=== PATIENT | male | born 1995 | race Caucasian/White ===

== ENCOUNTER 2017-04-16 11:54 | Emergency (ER) | payer BC ==
[2017-04-16 12:07] VITALS: BP 129/73
--- NOTE | 2017-04-16 12:22 | UC ---
Throat Pain/Nasal González HPI - HPI Summary HPI Summary: Per volunteer services assistant "c/o sore throat x 3 days. Also c/o frequent urination x 1 week. " He is here with his GF Caprice and their dtr Nancy. ST x a few days,. mild cough, no wheezing. denies dysuria, blood or penile d/c.no testicular pain or pain at rectum. no fever. did not take APAP or nsaids today. - History of Current Complaint Chief Complaint: UCRespiratory Stated Complaint: SORE THROAT,URINARY COMPLAINT Time Seen by Provider: 04/16/17 12:19 - Allergies/Home Medications Allergies/Adverse Reactions: Allergies Allergy/AdvReac Type Severity Reaction Status Date / Time No Known Allergies Allergy Unverified 04/16/17 12:07 PMH/Surg Hx/FS Hx/Imm Hx Previously Healthy: Yes - Surgical History Surgical History: None - Family History Known Family History: Positive: Hypertension - Social History Alcohol Use: None Substance Use Type: None Smoking Status (MU): Never Smoked Tobacco Review of Systems Constitutional: Negative Skin: Negative Eyes: Negative ENT: Sore Throat, Other - +PND Respiratory: Cough - mild Cardiovascular: Negative Gastrointestinal: Negative Genitourinary: Frequency Motor: Negative Neurovascular: Negative Musculoskeletal: Negative Neurological: Negative Psychological: Negative All Other Systems Reviewed And Are Negative: Yes Physical Exam Triage Information Reviewed: Yes Appearance: Well-Appearing, No Pain Distress, Well-Nourished Vital Signs: Initial Vital Signs Temp 97.8 F 04/16/17 12:00 Pulse 91 04/16/17 12:00 Resp 16 04/16/17 12:00 BP 129/73 04/16/17 12:00 Pulse Ox 99 04/16/17 12:00 Vital Signs Reviewed: Yes Eye Exam: Normal ENT: Positive: Hearing grossly normal, Pharyngeal erythema - +PND, no exudate, no abscess., TMs normal, Other: - no sinus tenderness Dental Exam: Normal Neck exam: Normal Neck: Positive: Supple, Nontender, No Lymphadenopathy. Negative: Nuchal Rigidity Respiratory Exam: Normal Respiratory: Positive: Lungs clear, Normal breath sounds, No respiratory distress, No accessory muscle use. Negative: Crackles, Rhonchi, Stridor, Wheezing Cardiovascular Exam: Normal Cardiovascular: Positive: RRR, No Murmur, Pulses Normal Abdominal Exam: Normal Abdomen Description: Positive: Nontender, Soft Musculoskeletal Exam: Normal Neurological Exam: Normal Psychological Exam: Normal Skin Exam: Normal Throat Pain/Nasal Course/Dx - Course Course Of Treatment: rapid strep is neg. UA nml. will send cx - Differential Dx/Diagnosis Differential Diagnosis/HQI/PQRI: Laryngitis, Peritonsillar Abscess, Pharyngitis , Tonsillitis, URI Provider Diagnoses: viral pharyngitis, urinary frequency Discharge - Discharge Plan Condition: Stable Disposition: HOME Patient Education Materials: Pharyngitis (ED) Referrals: No Primary Care Phys,NOPCP [Primary Care Provider] - 3 Days [facility] [Provider Group] Additional Instructions: Strep test is negative and urine sample was normal. You should follow up for this this week with a provider listed above. You should be checked for diabetes due to urinary frequency by your new PCP. Drink plenty of fluids, you can take tylenol or ibuprofen for the sore throat for the next few days.
== END 2017-04-16 12:59 | disposition home or self-care (01) ==
LOC: UCCORT 11:54
DX: J02.8 Acute pharyngitis due to other specified organisms (principal); R35.0 Frequency of micturition
CPT/HCPCS: 81003; 87086; 87651; 99212; G0463

== ENCOUNTER 2017-10-10 12:14 | Emergency (ER) | payer BC ==
[2017-10-10 14:29] VITALS: BP 136/85
--- NOTE | 2017-10-10 14:45 | UC ---
HPI Febrile Illness - HPI Summary HPI Summary: Pt presents to with reporting 2 weeks ago had body aches, cough, nausea/ vomiting. Pt states had significant head congestion. Pt states was starting to feel better and 2 days ago develop sore thoat, right ear popping and fullness. Pt denies fevers, chills. Pt has been using OTC mucinex, nasal spray with mild relief. No meds today. Pt states today feels "the best" but was concerned with sore throat so wanted to be checked. Pt's daughter 9months with + flu 6 days ago. Pt uses inhaler Qhs. No sob. no wheeze + smokes cigarettes + flu vaccine this year. Pt requesting a work note pt's medications reviewed this visit - History of Current Complaint Chief Complaint: UCGeneralIllness Time Seen by Provider: 10/10/17 14:36 Hx Obtained From: Patient Timing: Constant, Lasting Days Initial Severity: Moderate Pain Intensity: 0 Aggravating Factors: Nothing Associated Signs and Symptoms: Cough, Nausea - resolved - Allergy/Home Medications Allergies/Adverse Reactions: Allergies Allergy/AdvReac Type Severity Reaction Status Date / Time No Known Allergies Allergy Unverified 10/10/17 14:27 PMH/Surg Hx/FS Hx/Imm Hx Previously Healthy: Yes - Surgical History Surgical History: None - Family History Known Family History: Positive: Hypertension - Social History Occupation: Employed Full-time Lives: With Family Alcohol Use: Rare Substance Use Type: Marijuana Substance Use Comment - Amount & Last Used: daily Smoking Status (MU): Current Every Day Smoker Type: Cigars Amount Used/How Often: 1 per day Review of Systems Constitutional: Fever Skin: Negative Eyes: Other ENT: Sore Throat, Ear Ache, Sinus Congestion, Sinus Pain/Tenderness Respiratory: Cough Cardiovascular: Negative Gastrointestinal: Negative Genitourinary: Negative Motor: Negative Neurovascular: Negative Musculoskeletal: Negative Neurological: Negative Psychological: Negative All Other Systems Reviewed And Are Negative: Yes Physical Exam Triage Information Reviewed: Yes Appearance: Well-Nourished, Other: - tired appearing Vital Signs: Initial Vital Signs Temp 98.5 F 10/10/17 14:23 Pulse 98 10/10/17 14:23 Resp 18 10/10/17 14:23 BP 136/85 10/10/17 14:23 Pulse Ox 100 10/10/17 14:23 Vital Signs Reviewed: Yes Eye Exam: Normal Eyes: Positive: Conjunctiva Clear ENT Exam: Normal ENT: Positive: Pharynx normal - Right TM + fluid, + erythema turbinates inflammed + PND + erythema + exudate uvula midline, symmetry, Nasal congestion , TM bulging, TM red, Other Dental Exam: Normal Neck exam: Normal Neck: Positive: Supple, Nontender Respiratory Exam: Normal Respiratory: Positive: Chest non-tender, Lungs clear, Normal breath sounds, No respiratory distress, No accessory muscle use, Respiratory distress, Other: - intermittent cough Cardiovascular Exam: Normal Cardiovascular: Positive: RRR, No Murmur, Pulses Normal Abdominal Exam: Normal Abdomen Description: Positive: Nontender, No Organomegaly, Soft Bowel Sounds: Positive: Present Musculoskeletal Exam: Normal Musculoskeletal: Positive: Strength Intact Neurological Exam: Normal Neurological: Positive: Alert Psychological Exam: Normal Psychological: Positive: Normal Response To Family Skin Exam: Normal Course/Dx - Course Course Of Treatment: Pt presents after 2 weeks body aches, nausea/vomiting, congestion. Pts tates was improving but now with right ear pain, fullness and sore throat. Pt requesting work note- pt is off this week return on Monday - Diagnoses Clinic Provider Diagnoses: pharyngitis. OM- right Discharge - Discharge Plan Condition: Stable Disposition: HOME Patient Education Materials: Ear Infection (ED), Pharyngitis (ED) Referrals: No Primary Care Phys,NOPCP [Primary Care Provider] - Additional Instructions: - Stay well hydrated. Drink plenty of non-alcoholic, non-caffinated beverages. - Alternate ibuprofen (Advil, Motrin) 600mg and Tylenol every 3 hours for pain or fever. Take with food. Do NOT take for more than 4-5 days. - These infections are spread by secretions - do NOT share eating or drinking utensils - clean items you share with other people such as cell phones, computer mouse, TV remote, computer tablets, etc. After you have taken antibiotics for 2 days, change your toothbrush and your pillowcase. - get plenty of restful sleep - humidify the air in the room where you sleep - boil water, run a hot steam shower, vaporizer, cups of water by heat register - okay to take over the counter decongestant and cough medication -use nasal spray as previous - contact your doctor or return with questions or concerns
== END 2017-10-10 15:19 | disposition home or self-care (01) ==
LOC: UCCORT 12:14
DX: J02.9 Acute pharyngitis, unspecified (principal); H66.91 Otitis media, unspecified, right ear; Z20.828 Contact with and (suspected) exposure to other viral communicable diseases; F17.210 Nicotine dependence, cigarettes, uncomplicated
CPT/HCPCS: 87651; 99212; G0463

== ENCOUNTER 2017-12-19 12:19 | Emergency (ER) | payer BC ==
[2017-12-19 12:46] VITALS: BP 121/74
--- NOTE | 2017-12-19 13:33 | UC ---
Abdominal Pain Male HPI - HPI Summary HPI Summary: vomiting x 3 days mild diarrhea, mild abdominal discomfort feeling better today ,no fever , no chills, father and brother with similar symptoms - History of Current Complaint Chief Complaint: UCGI Stated Complaint: NAUSEA/VOMITING Time Seen by Provider: 12/19/17 13:16 Hx Obtained From: Patient Onset/Duration: Gradual Onset, Lasting Days - 3, Still Present Timing: Constant Severity Initially: Moderate Severity Currently: Mild Pain Intensity: 0 Location: Diffuse Radiates: No Character: Cramping Aggravating Factor(s): Food Alleviating Factor(s): Nothing Associated Signs And Symptoms: Positive: Decreased Appetite, Nausea, Vomiting, Diarrhea. Negative: Diaphoresis, Fever, Cough, Chest Pain, Dizzy, Back Pain, Constipation, Blood in Stool, Urinary Symptoms, Penile Discharge - Allergies/Home Medications Allergies/Adverse Reactions: Allergies Allergy/AdvReac Type Severity Reaction Status Date / Time No Known Allergies Allergy Unverified 12/19/17 12:46 Home Medications: Home Medications Albuterol HFA INHALER* [Ventolin HFA Inhaler*] 1 - 2 puff INH Q4H PRN 12/19/17 [ History Confirmed 12/19/17] Fluticasone HFA 110 mcg(NF) [Flovent HFA 110 mcg(NF)] 2 puff INH BEDTIME [History Confirmed 12/19/17] PMH/Surg Hx/FS Hx/Imm Hx Previously Healthy: Yes - Surgical History Surgical History: None - Family History Known Family History: Positive: Hypertension - Social History Alcohol Use: Rare Substance Use Type: Marijuana Substance Use Comment - Amount & Last Used: daily Smoking Status (MU): Current Every Day Smoker Type: Cigars Amount Used/How Often: 1 per day Length of Time of Smoking/Using Tobacco: Since Age 13 Review of Systems Constitutional: Negative Skin: Negative Eyes: Negative ENT: Negative Respiratory: Negative Gastrointestinal: Vomiting, Diarrhea, Nausea Genitourinary: Negative Is Patient Immunocompromised?: No All Other Systems Reviewed And Are Negative: Yes Physical Exam Triage Information Reviewed: Yes Appearance: Well-Appearing, No Pain Distress, Well-Nourished Vital Signs: Initial Vital Signs Temp 98.2 F 12/19/17 12:40 Pulse 70 12/19/17 12:40 Resp 16 12/19/17 12:40 BP 121/74 12/19/17 12:40 Pulse Ox 100 12/19/17 12:40 Vital Signs Reviewed: Yes Eyes: Positive: Conjunctiva Clear ENT: Positive: Normal ENT inspection, Hearing grossly normal, Pharynx normal, Pharyngeal erythema Neck exam: Normal Neck: Positive: Supple, Nontender, No Lymphadenopathy Respiratory: Positive: Chest non-tender, Lungs clear, Normal breath sounds, No respiratory distress Cardiovascular: Positive: RRR, No Murmur, Pulses Normal Abdominal Exam: Normal Abdomen Description: Positive: Nontender, Soft. Negative: CVA Tenderness (R), CVA Tenderness (L), Distended, Guarding Bowel Sounds: Positive: Present Skin Exam: Normal Abd Pain Male Course/Dx - Differential Dx/Clinical Impression Provider Diagnoses: gastroenteritis Discharge - Sign-Out/Discharge Documenting (check all that apply): Discharge/Admit/Transfer - Discharge Plan Condition: Stable Disposition: HOME Patient Education Materials: Gastroenteritis (ED) Forms: *Work Release Referrals: No Primary Care Phys,NOPCP [Primary Care Provider] - If Needed - Billing Disposition and Condition Condition: STABLE Disposition: HOME
== END 2017-12-19 13:36 | disposition home or self-care (01) ==
LOC: UCCORT 12:19
DX: K52.9 Noninfective gastroenteritis and colitis, unspecified (principal); F17.290 Nicotine dependence, other tobacco product, uncomplicated
CPT/HCPCS: 99212; G0463

== ENCOUNTER 2019-02-10 15:25 | Emergency (ER) | payer SELFPAY ==
--- NOTE | 2019-02-10 15:29 | UC ---
Throat Pain/Nasal González HPI - HPI Summary HPI Summary: 23 yo male presents with right ear pain, sore throat, and dizziness for the last 3 days. He tells me that his symptoms have gotten progressively worse over the last 3 days. He has been taking tylenol and dayquill/nyquill for his symptoms with little relief. He is tolerating po well and is eating/drinking. Denies fever, cough, rash, SOB, chest pain. - History of Current Complaint Stated Complaint: SORE THROAT Time Seen by Provider: 02/10/19 15:29 Hx Obtained From: Patient Onset/Duration: Gradual Onset Severity: Moderate Pain Intensity: 5 Pain Scale Used: 0-10 Numeric Cough: Nonproductive - Allergies/Home Medications Allergies/Adverse Reactions: Allergies Allergy/AdvReac Type Severity Reaction Status Date / Time dust, cats Allergy Eyes Uncoded 02/10/19 15:36 Itchy/Swollen/Red/Watery Home Medications: Home Medications Aspirin/Acetaminophen/Caffeine [Excedrin Migraine Caplet] 1 each PO 02/10/19 [ History] D-Methorphan/PE/Acetaminophen [Vicks Dayquil Liquid] 236 ml PO 02/10/19 [History ] PMH/Surg Hx/FS Hx/Imm Hx Respiratory History: Asthma - Surgical History Surgical History: None - Family History Known Family History: Positive: Hypertension - Social History Occupation: Employed Full-time Lives: With Family Alcohol Use: Occasionally Substance Use Type: Marijuana Substance Use Comment - Amount & Last Used: daily-last use 10/20/18 0900 Smoking Status (MU): Current Every Day Smoker Type: Cigars Amount Used/How Often: 2 per day Length of Time of Smoking/Using Tobacco: Since Age 13 Household Exposure Type: Cigars Review of Systems All Other Systems Reviewed And Are Negative: Yes Constitutional: Positive: Fatigue Skin: Positive: Negative Eyes: Positive: Negative ENT: Positive: Sore Throat, Ear Ache Respiratory: Positive: Negative Cardiovascular: Positive: Negative Gastrointestinal: Positive: Negative Neurovascular: Positive: Negative Neurological: Positive: Other - Dizziness Psychological: Positive: Negative Physical Exam - Summary Physical Exam Summary: GENERAL: NAD. WDWN. No pain distress. SKIN: No rashes, sores, lesions, or open wounds. HEENT: Head: AT/NC Eyes: Conjunctiva clear without inflammation or discharge. Ears: Hearing grossly normal. TMs intact, no bulging, erythema, or edema. Right TM with clear fluid behind Nose: Nasal mucosa pink and moist. NTTP maxillary and frontal sinus. Throat: Posterior oropharynx mild erythema and 2+ tonsillar enlargement. No exudates. Uvula midline. No hoarse voice or muffled voice. NECK: Supple. Right tonsillar LAD with mild TTP. CHEST: CTAB. No r/r/w. No accessory muscle use. Breathing comfortably and in no distress. CV: RRR. Without m/r/g. Pulses intact. Cap refill <2seconds NEURO: Alert. PSYCH: Age appropriate behavior. Triage Information Reviewed: Yes Vital Signs: Vital Signs: Temp Pulse Resp BP Pulse Ox 98.6 F 104 18 130/84 100 02/10/19 15:34 02/10/19 15:34 02/10/19 15:34 02/10/19 15:34 02/10/19 15:34 Laboratory Tests 02/10/19 15:41 Group A Strep Rapid Negative Vital Signs Reviewed: Yes Throat Pain/Nasal Course/Dx - Course Course Of Treatment: POC strep negative Tonsillitis. Serous otitis media. Will rx for augmentin. He states that he feels a bit nauseous, thus will also rx for zofran. - Differential Dx/Diagnosis Provider Diagnosis: Tonsillitis Discharge - Sign-Out/Discharge Documenting (check all that apply): Patient Departure All imaging exams completed and their final reports reviewed: No Studies - Discharge Plan Condition: Stable Disposition: HOME Prescriptions: Amoxicillin/Clavulanate TAB* [Augmentin TAB 875*] 875 mg PO BID #14 tab Ondansetron ODT TAB* [Zofran 4 MG Odt TAB*] 4 mg PO Q8H PRN #12 tab.odt PRN Reason: Nausea Patient Education Materials: Tonsillitis (ED) Forms: *Work Release Referrals: No Primary Care Phys,NOPCP [Primary Care Provider] - Additional Instructions: If you develop a fever, shortness of breath, chest pain, new or worsening symptoms - please call your PCP or go to the ED immediately. 1) Rest and drink plenty of fluids - Billing Disposition and Condition Condition: STABLE Disposition: Home
[2019-02-10 15:36] VITALS: BP 130/84
== END 2019-02-10 15:58 | disposition home or self-care (01) ==
LOC: UCEAST 15:25
DX: J03.90 Acute tonsillitis, unspecified (principal); F17.210 Nicotine dependence, cigarettes, uncomplicated
CPT/HCPCS: 87651; 99212; G0463

== ENCOUNTER 2019-10-28 19:21 | Emergency (ER) | payer SELFPAY ==
--- OUTSIDE RECORDS SUMMARY | 2019-10-28 19:45 | XMS REPORT | Continuity of Care Document ---
:1995 External Reference #:[id number] Author Name Roxana Milner M.D. Address [address] [place] [address] Problems Description No Information Available Social History Type Date Description Comments Sex Unknown ETOH Use Denies alcohol use Tobacco Use Start: Unknown Patient has never smoked Recreational Drug Use Denies Drug Use Allergies, Adverse Reactions, Alerts Description No Known Drug Allergies Medications Active Medications SIG Qnty Indications Ordering Provider Date Amoxicillin 2 by mouth twice 40tabs J18.9 Roxana Milner, 10/25/2019 500mg Tablets a day M.D. Citalopram take one tablet 30tabs F41.9 Roxana Milner, 07/22/2019 Hydrobromide by mouth every M.D. 20mg Tablets day F33.9 Immunizations CPT Code Status Date Vaccine Lot # [id number] Given 02/18/2000 MMR 20650 Given 02/18/2000 [facility] 2001 [id number] ML 0.50 Vital Signs Date Vital Result Comment 10/25/2019 11:02am BP Systolic 122 mmHg BP Diastolic 68 mmHg Height 68 inches 5'8" Weight 219.00 lb BMI (Body Mass Index) 33.3 kg/m2 Heart Rate 89 /min Body Temperature 97.2 F Respiratory Rate 16 /min 04/17/2019 3:03pm BP Systolic 122 mmHg BP Diastolic 72 mmHg Height 68 inches 5'8" Weight 212.00 lb BMI (Body Mass Index) 32.2 kg/m2 Heart Rate 92 /min Respiratory Rate 16 /min Results Description No Information Available Procedures Description No Information Available Medical Devices Description No Information Available Encounters Type Date Location Provider Dx Diagnosis Office Visit 10/25/2019 [facility] Roxana Milner, L20.9 Atopic dermatitis, 11:15a M.D. unspecified J30.9 Allergic rhinitis, unspecified R00.0 Tachycardia, unspecified F41.9 Anxiety disorder, unspecified F33.9 Major depressive disorder, recurrent, unspecified J18.9 Pneumonia, unspecified organism J01.40 Acute pansinusitis, unspecified Assessments Date Code Description Provider 10/25/2019 L20.9 Atopic dermatitis, unspecified AlfRoxana M.D. 10/25/2019 J30.9 Allergic rhinitis, unspecified Alf, Roxana Valerio M.D. 10/25/2019 R00.0 Tachycardia, unspecified AlfRoxana M.D. 10/25/2019 F41.9 Anxiety disorder, unspecified Alf, Roxana Valerio M.D. 10/25/2019 F33.9 Major depressive disorder, recurrent, AlfRoxana M.D. unspecified 10/25/2019 J18.9 Pneumonia, unspecified organism Alf, Roxana Valerio M.D. 10/25/2019 J01.40 Acute pansinusitis, unspecified Alf, Roxana Valerio M.D. 08/15/2019 L20.9 Atopic dermatitis, unspecified AlfRoxana M.D. 08/15/2019 J30.9 Allergic rhinitis, unspecified AlfRoxana M.D. 08/15/2019 F41.9 Anxiety disorder, unspecified AlfRoxana M.D. 08/15/2019 R00.0 Tachycardia, unspecified AlfRoxana M.D. 07/30/2019 L20.9 Atopic dermatitis, unspecified AlfRoxana M.D. 07/30/2019 J30.9 Allergic rhinitis, unspecified AlfRoxana M.D. 07/30/2019 F41.9 Anxiety disorder, unspecified AlfRoxana M.D. 07/30/2019 R00.0 Tachycardia, unspecified AlfRoxana M.D. Plan of Treatment 10/25/2019 - Roxana Milner M.D.L20.9 Atopic dermatitis, unspecifiedComments: SKIN CARE INSTRUCTIONS EUCERIN CREAM OR BABY OIL 2-3 APPLICATION PER DAYUSE MOISTURIZING SOAPAVOID PROLONGED WATER EXPOSUREAVOID USING HOT WATER IN JSEDYWS79.9 Allergic rhinitis, unspecifiedComments:INCREASE PO FLUID USE ANTIHISTAMINE PRN SECOND HAND SMOKING CFYZFPFUTC90.0 Tachycardia, unspecifiedComments:STABLE AND SGVBCXXESSDWH35.9 Anxiety disorder, unspecifiedComments:COUNCELLING AND REASSURANCE RELAXATION TECHNIQUESAVOID STRESSORS IN LIFE AVOID ALL ENERGY/HIGH CAFFEINE UHMTNZZ88.9 Major depressive disorder, recurrent, unspecifiedComments:COUNCELLING AND REASSURANCE RELAXATION TECHNIQUESAVOID STRESSORS IN LIFE AVOID ALL ENERGY/HIGH CAFFEINE HZJBPFH88.9 Pneumonia, unspecified organismNew Medication:Amoxicillin 500 mg - 2 by mouth twice a dayComments:INCREASE PO TAIQQACNRE19.40 Acute pansinusitis, unspecified Functional Status Description No Information Available Mental Status Description No Information Available Referrals Description No Information Available
[2019-10-28 20:04] VITALS: BP 137/86
--- NOTE | 2019-10-28 20:51 | UC ---
FLU HPI - HPI Summary HPI Summary: 24yo male presenting with flu like symptoms x7 days. Patient states his symptoms have slowly started to improve but states he has persistent nausea x3 days. The patient states that he was seen by his primary care provider 4 days ago and told he likely has the flu but there is concern for a right lobe pneumonia as well." Patient states that his primary prescribed "amoxicillin 1000 mg twice daily for 20 days" for treatment of the pneumonia. Patient states that his fever broke 3 days ago. States he continues to cough and feel wheezy. Denies shortness of breath and difficulty breathing. Denies any vomiting. Patient states his PCP did not do a flu test or a chest x-ray. Patient has a history of asthma and is a current everyday smoker. - History of Current Complaint Chief Complaint: UCGeneralIllness Stated Complaint: NAUSEA, COUGH Hx Obtained From: Patient Pain Intensity: 7 Pain Scale Used: 0-10 Numeric - Allergy/Home Medications Allergies/Adverse Reactions: Allergies Allergy/AdvReac Type Severity Reaction Status Date / Time dust, cats Allergy Eyes Uncoded 10/28/19 19:52 Itchy/Swollen/Red/Watery Home Medications: Home Medications Albuterol HFA INHALER* [Ventolin HFA Inhaler*] 1 - 2 puff INH Q4H PRN 12/19/17 [ History Confirmed 10/28/19] D-Methorphan/PE/Acetaminophen [Vicks Dayquil Liquid] 236 ml PO DAILY PRN [History Confirmed 10/28/19] Amoxicillin PO (*) [Amoxicillin 500 MG CAP*] 2 tab PO Q12H 10/28/19 [History Confirmed 10/28/19] Citalopram TAB* [CeleXA TAB*] 20 mg PO DAILY 10/28/19 [History Confirmed ] Ibuprofen TAB* [Advil TAB*] 200 mg PO Q6H PRN 10/28/19 [History Confirmed ] Ondansetron TAB* [Zofran 4 MG Tab*] 4 mg PO Q6H PRN #12 tab 10/28/19 [Rx] predniSONE [Prednisone 20 MG TAB] 40 mg PO DAILY #8 tablet 10/28/19 [Rx] PMH/Surg Hx/FS Hx/Imm Hx Respiratory History: Asthma - Surgical History Surgical History: None Surgery Procedure, Year, and Place: none - Family History Known Family History: Positive: Hypertension - Social History Alcohol Use: Occasionally Substance Use Type: Marijuana Substance Use Comment - Amount & Last Used: daily-last 2 days ago last use Smoking Status (MU): Current Every Day Smoker Type: Cigars Amount Used/How Often: 2 per day-none inlast 24 hrs Length of Time of Smoking/Using Tobacco: Since Age 13 Household Exposure Type: Cigars Review of Systems All Other Systems Reviewed And Are Negative: Yes Constitutional: Positive: Fatigue Respiratory: Positive: Cough, Other - wheezing. Negative: Shortness Of Breath Cardiovascular: Positive: Negative Gastrointestinal: Positive: Nausea. Negative: Abdominal Pain, Vomiting, Diarrhea Musculoskeletal: Positive: Negative Neurological/Mental Status: Positive: Negative Physical Exam - Summary Physical Exam Summary: Vital Signs Reviewed: Yes A+Ox3, no distress Eyes: Conjunctiva Clear ENT: Hearing grossly normal, TM x 2 clear, moist, uvula midline, no exudate, no erythema Neck: Positive: Supple Respiratory: Positive: No respiratory distress, No accessory muscle use + diffuse expiratory wheezing throughout lung simmons, no rales or rhonchi Cardiovascular: RRR nl s1, s2 no m/r Musculoskeletal Exam: JULIAN x 4 without difficulty Neurological: Positive: Alert Psychological: Positive: age appropriate behavior Skin: Positive: no rash, no ecchymosis Vital Signs: Initial Vital Signs Temp 98.6 F 10/28/19 19:57 Pulse 84 10/28/19 19:57 Resp 18 10/28/19 19:57 BP 137/86 10/28/19 19:57 Pulse Ox 97 10/28/19 19:57 Discharge ED - Sign-Out/Discharge Documenting (check all that apply): Patient Departure All imaging exams completed and their final reports reviewed: No - Discharge Plan Condition: Stable Disposition: HOME Prescriptions: Ondansetron TAB* [Zofran 4 MG Tab*] 4 mg PO Q6H PRN #12 tab PRN Reason: Nausea/Vomiting predniSONE [Prednisone 20 MG TAB] 40 mg PO DAILY #8 tablet Patient Education Materials: Wheezing (ED) Referrals: Roxana Milner MD [Primary Care Provider] - 1 Week Additional Instructions: As discussed, your radiograph was reviewed by the provider that treated you tonight. It will be read by a radiologist tomorrow morning. If there is a finding other than that discussed with you today, you will receive a call from a care provider. It is recommended that you discontinue your amoxicillin at this time. Take the prednisone as prescribed and use your inhaler as needed for shortness of breath. Take zofran as directed for relief of nausea. Follow up with your primary care provider within the next week for reevaluation of symptoms. Go to the emergency room with any new or worsening symptoms. - Billing Disposition and Condition Condition: STABLE Disposition: Home
[2019-10-28] MEDS ORDERED: Ondansetron ODT TAB* 4 MG SL ONE (21:00)
[2019-10-28 21:25] LABS: Influenza A Molecular Negative (Negative); Influenza B Molecular Negative (Negative)
--- NOTE | 2019-10-29 08:24 | UC ---
- Progress Note Progress Note: chest xray report : IMPRESSION: NO ACTIVE CARDIOPULMONARY DISEASE. Course/Dx - Diagnoses Provider Diagnoses: Cough Discharge ED - Sign-Out/Discharge Documenting (check all that apply): Patient Departure All imaging exams completed and their final reports reviewed: Yes - Discharge Plan Condition: Stable Disposition: HOME Prescriptions: Ondansetron TAB* [Zofran 4 MG Tab*] 4 mg PO Q6H PRN #12 tab PRN Reason: Nausea/Vomiting predniSONE [Prednisone 20 MG TAB] 40 mg PO DAILY #8 tablet Patient Education Materials: Wheezing (ED) Referrals: Roxana Milner MD [Primary Care Provider] - 1 Week Additional Instructions: As discussed, your radiograph was reviewed by the provider that treated you tonight. It will be read by a radiologist tomorrow morning. If there is a finding other than that discussed with you today, you will receive a call from a care provider. It is recommended that you discontinue your amoxicillin at this time. Take the prednisone as prescribed and use your inhaler as needed for shortness of breath. Take zofran as directed for relief of nausea. Follow up with your primary care provider within the next week for reevaluation of symptoms. Go to the emergency room with any new or worsening symptoms. - Billing Disposition and Condition Condition: STABLE Disposition: Home
== END 2019-10-28 21:40 | disposition home or self-care (01) ==
LOC: UCCORT 19:21
DX: R05 Cough (principal); R53.83 Other fatigue; R06.2 Wheezing; R11.0 Nausea; F17.210 Nicotine dependence, cigarettes, uncomplicated; J45.909 Unspecified asthma, uncomplicated; Z91.09 Other allergy status, other than to drugs and biological substances; Z79.899 Other long term (current) drug therapy
CPT/HCPCS: 71046; 99212; A9270-GY; G0463; J7512